=== PATIENT | male | born 1990 | race Caucasian/White ===

== ENCOUNTER 2017-07-30 20:33 | Emergency (ER) | payer OTHER ==
[~2017-07-30] VITALS: Ht 177.8 cm; Wt 122.5 kg
== END 2017-07-30 23:08 | disposition home or self-care (01) ==
LOC: ER 20:33
DX: B34.9 Viral infection, unspecified (principal)

== ENCOUNTER 2019-01-03 15:14 | Emergency (ER) | payer OTHER ==
[~2019-01-03] VITALS: Ht 177.8 cm; Wt 130.6 kg
== END 2019-01-03 17:57 | disposition home or self-care (01) ==
LOC: ER 15:14
DX: J31.2 Chronic pharyngitis (principal)

== ENCOUNTER 2019-08-10 21:17 | Emergency (ER) | payer OTHER ==
[~2019-08-10] VITALS: Ht 177.8 cm; Wt 127.0 kg
== END 2019-08-11 00:29 | disposition home or self-care (01) ==
LOC: ER 21:17
DX: S51.822A Laceration with foreign body of left forearm, initial encounter (principal); W26.0XXA Contact with knife, initial encounter; Y93.89 Activity, other specified; Y92.69 Other specified industrial and construction area as the place of occurrence of the external cause; Y99.8 Other external cause status

== ENCOUNTER 2021-01-09 14:42 | Emergency (ER) | payer OTHER ==
[~2021-01-09] VITALS: Ht 167.6 cm; Wt 127.0 kg
[2021-01-09] MEDS ORDERED: ZITHROMAX500 MG PO (23:57)
[2021-01-09] MEDS ORDERED: PROAIR RESPICL90 MCG IH (23:57)
== END 2021-01-10 00:38 | disposition home or self-care (01) ==
LOC: ER 14:42
DX: J98.01 Acute bronchospasm (principal); J06.9 Acute upper respiratory infection, unspecified; Z11.52 Encounter for screening for COVID-19

== ENCOUNTER 2021-01-26 09:16 | Outpatient (CLI) | payer OTHER ==
[~2021-01-26 09:16] MED LIST: PROAIR RESPICL90 MCG IH; ZITHROMAX500 MG PO
== END 2021-01-26 09:17 | disposition home or self-care (01) ==
LOC: NUCLEAR 09:16
PROVIDERS: ATTEND Internal Medicine Cardiovascular Disease
DX: I10 Essential (primary) hypertension (principal)

== ENCOUNTER 2021-03-25 13:08 | Outpatient (CLI) | payer OTHER | END 2021-03-25 13:15 | disposition home or self-care (01) | LOC: LAB 13:08 | PROVIDERS: ATTEND Internal Medicine Cardiovascular Disease | DX: R06.2 Wheezing (principal); R05 Cough; R50.9 Fever, unspecified ==

== ENCOUNTER 2021-11-08 22:33 | Emergency (ER) | payer OTHER ==
[~2021-11-08] VITALS: Ht 177.8 cm; Wt 136.1 kg
== END 2021-11-09 00:42 | disposition home or self-care (01) ==
LOC: ER 22:33
DX: S92.422A Displaced fracture of distal phalanx of left great toe, initial encounter for closed fracture (principal); X58.XXXA Exposure to other specified factors, initial encounter; Y93.9 Activity, unspecified; Y92.9 Unspecified place or not applicable; Y99.9 Unspecified external cause status

== ENCOUNTER 2022-03-26 08:33 | Emergency (ER) | payer OTHER ==
[~2022-03-26] VITALS: Ht 177.8 cm; Wt 133.4 kg
== END 2022-03-26 15:21 | disposition home or self-care (01) ==
LOC: ER 08:33
DX: M72.2 Plantar fascial fibromatosis (principal)

== ENCOUNTER 2022-08-10 22:51 | Emergency (ER) | payer OTHER ==
[~2022-08-10] VITALS: Ht 177.8 cm; Wt 135.2 kg
== END 2022-08-11 00:18 | disposition home or self-care (01) ==
LOC: ER 22:51
DX: H61.23 Impacted cerumen, bilateral (principal)

== ENCOUNTER 2022-09-12 17:53 | Emergency (ER) | payer OTHER ==
[~2022-09-12] VITALS: Ht 177.8 cm; Wt 135.2 kg
== END 2022-09-12 20:11 | disposition home or self-care (01) ==
LOC: ER 17:53
DX: J06.9 Acute upper respiratory infection, unspecified (principal); Z20.822 Contact with and (suspected) exposure to COVID-19

== ENCOUNTER 2023-08-06 12:29 | Emergency (ER) | payer OTHER ==
[~2023-08-06] VITALS: Ht 177.8 cm; Wt 102.1 kg
== END 2023-08-06 13:53 | disposition home or self-care (01) ==
LOC: ER 12:30
DX: M54.89 Other dorsalgia (principal); M43.8X6 Other specified deforming dorsopathies, lumbar region

== ENCOUNTER 2024-02-25 07:31 | Outpatient (CLI) | payer OTHER | END 2024-02-25 07:32 | disposition home or self-care (01) | LOC: NUCLEAR 07:31 | PROVIDERS: ATTEND Internal Medicine Cardiovascular Disease | DX: R07.9 Chest pain, unspecified (principal) ==